=== PATIENT | male | born 1940 | race Caucasian/White ===

== ENCOUNTER 2017-06-16 22:59 | Emergency (ER) | payer MEDICARE, OTHER ==
--- NOTE | 2017-06-17 00:17 | NUR ---
CALLED FOR PT NO ANSWER LWBT
== END 2017-06-17 00:19 | disposition left against medical advice (07) ==
LOC: ER 23:03
DX: Z53.21 Procedure and treatment not carried out due to patient leaving prior to being seen by health care provider (principal)